=== PATIENT | male | born 1990 | race Caucasian/White ===

== ENCOUNTER 2017-08-17 06:02 | Day surgery (SDC) | payer OTHER ==
[~2017-08-17] VITALS: Ht 188 cm; Wt 98.1 kg
[2017-08-17] MEDS ORDERED: LIDOCAINE 1%, 2ML ONE (06:16)
[2017-08-17 06:31] VITALS: BP 148/88
[2017-08-17] MEDS ORDERED: LACTATED RINGERS 1,000 ML IV SCH (06:45)
[2017-08-17] MEDS ORDERED: ASCO-96 PO (06:49)
[2017-08-17] MEDS ORDERED: MULT-257 PO (06:49)
[2017-08-17] MEDS ORDERED: BISM262T7 PO (06:49)
[2017-08-17] MEDS ORDERED: LIDOCAINE 1%, 2ML SQ PRN (07:00)
[2017-08-17] MEDS ORDERED: LIDOCAINE/PF 1%, 30ML ONE (07:02)
[2017-08-17] MEDS ORDERED: EPINEPHRINE 1 MG/ML, 1ML ONE (07:03)
[2017-08-17] MEDS ORDERED: BACITRACIN OINT 500U/GM, 15 GM ONE (07:03)
[2017-08-17] MEDS ORDERED: OXYMETAZOLINE NASAL SPRAY 0.05%, 15ML ONE (07:03)
[2017-08-17] MEDS ORDERED: FLUORESCEIN OPHTHALMIC 1 MG STRIP ONE (07:03)
[2017-08-17] MEDS ORDERED: SUFentanil 50 MCG/ML, 1ML ONE (07:05)
[2017-08-17] MEDS ORDERED: MIDAZOLAM 1 MG/ML, 2ML ONE (07:05)
[2017-08-17] MEDS ORDERED: LIDOCAINE-MPF 2% ,5ML ONE (07:07)
[2017-08-17] MEDS ORDERED: PROPOFOL 10 MG/ML, 20ML ONE (07:07)
[2017-08-17] MEDS ORDERED: ROCURONIUM 10 MG/ML,10ML ONE (07:08)
[2017-08-17] MEDS ORDERED: FENTANYL PF 100 MCG/2ML ONE (07:34)
[2017-08-17] MEDS ORDERED: SUCCINYLCHOLINE 20 MG/ML, 10ML ONE (07:38)
[2017-08-17] MEDS ORDERED: DEXAMETHASONE 4 MG/ML, 1ML ONE (07:38)
[2017-08-17] MEDS ORDERED: ONDANSETRON 2MG/ML, 2ML ONE (07:38)
[2017-08-17] MEDS ORDERED: CEFAZOLIN 1,000 MG ONE (07:38)
[2017-08-17] MEDS ORDERED: OXYcodone 5 MG/5 ML ORAL.SOL UDC PO PRN (08:00)
[2017-08-17] MEDS ORDERED: ONDANSETRON 2MG/ML, 2ML IVPush PRN (08:00)
[2017-08-17] MEDS ORDERED: hydrALAzine 20 MG/ML, 1ML IV PRN (08:00)
[2017-08-17] MEDS ORDERED: FENTANYL PF 100 MCG/2ML IV PRN (08:00)
[2017-08-17] MEDS ORDERED: ACETAMINOPHEN 325 MG TABLET PO PRN (08:00)
[2017-08-17] MEDS ORDERED: MEPERIDINE/PF 25MG/0.5ML IVPush PRN (08:00)
[2017-08-17] MEDS ORDERED: HYDROmorphone 1 MG/ML, 1ML IV PRN (08:00)
[2017-08-17] MEDS ORDERED: PROMETHAZINE 25 MG/ML, 1ML IV PRN (08:00)
[2017-08-17] MEDS ORDERED: LABETALOL 5MG/ML, 20ML IV PRN (08:00)
== END 2017-08-17 10:00 ==
LOC: OUT 06:02
PROVIDERS: ATTEND Otolaryngology
DX: D14.0 Benign neoplasm of middle ear, nasal cavity and accessory sinuses (principal); Z72.89 Other problems related to lifestyle; Z88.8 Allergy status to other drugs, medicaments and biological substances
CPT/HCPCS: 31237; 88305; 88331; J0171; J0330; J0690; J1100; J2250; J2405; J2704; J3010; J3490; J7120